=== PATIENT | male | born 1955 | race Caucasian/White ===

== ENCOUNTER 2016-12-18 06:25 | Inpatient (IN) | payer OTHER ==
[~2016-12-18] VITALS: Ht 175.3 cm; Wt 80.0 kg
[~2016-12-18 06:25] MED LIST: COR6 PO; COU5 PO; FLE10 PO; GLU500 PO; NEU300 PO; PAX20 PO; V10 PO; Z PO
[2016-12-18 07:23] LABS: CALCIUM 8.9 mg/dL (8.5-10.1); CARBON DIOXIDE 21.5 mmol/L (21-32); CHLORIDE SERUM 102 mmol/L (98-107); CREATININE SERUM 0.9 mg/dL (0.7-1.3); GFR1 > 60 mL/min; GLUCOSE SERUM 178 mg/dL (74-106); POTASSIUM SERUM 3.9 mmol/L (3.5-5.1); SODIUM SERUM 134 mmol/L (136-145)
[2016-12-18] MEDS ORDERED: ZOCOR40 MG PO (07:23)
[2016-12-18] MEDS ORDERED: COUMADIN6 MG PO (07:25)
[2016-12-18] MEDS ORDERED: ENALAPRIL MALEA10 MG PO (07:26)
[2016-12-18] MEDS ORDERED: NOR10T PO (07:27)
[2016-12-18 07:28] LABS: ALKALINE PHOSPHATASE 94 U/L (46-116); ALT/SGPT 27 U/L (16-63); AST/SGOT 23 U/L (15-37); BASOPHIL % 0.4 % (0-2); BILIRUBIN TOTAL 1.44 mg/dL (0.20-1.00); LIPASE 506 IU/L (73-393); PLATELET COUNT 167 x10^3mcL (130-400); RED CELL DISTRIBUTION WIDTH 13.3 % (11.5-14.5)
[2016-12-18 10:51] VITALS: BP 157/86
[2016-12-18 10:57] VITALS: BP 137/93
[2016-12-18 14:43] VITALS: BP 130/83
[2016-12-18] MEDS ORDERED: LEVAQUIN500 M1 PO (17:44)
[2016-12-18 19:49] VITALS: BP 130/83
[2016-12-18 22:04] VITALS: BP 130/80
[2016-12-19 06:07] VITALS: BP 132/86
[2016-12-19 06:15] LABS: PLATELET COUNT 195 x10^3mcL (130-400); RED CELL DISTRIBUTION WIDTH 13.5 % (11.5-14.5)
[2016-12-19 06:24] LABS: CALCIUM 9.4 mg/dL (8.5-10.1); CARBON DIOXIDE 22.6 mmol/L (21-32); CHLORIDE SERUM 101 mmol/L (98-107); CREATININE SERUM 0.9 mg/dL (0.7-1.3); GFR1 > 60 mL/min; GLUCOSE SERUM 157 mg/dL (74-106); POTASSIUM SERUM 4.1 mmol/L (3.5-5.1); SODIUM SERUM 137 mmol/L (136-145)
[2016-12-19 06:28] LABS: CHOLESTEROL/HDL RATIO 5.8
[2016-12-19 08:43] LABS: BAND NEUTROPHIL 4 % (0-10); BASOPHIL 0 % (0-2); MONOCYTE 7 % (0-7); SEGMENTED NEUTROPHILS 83 % (37-75)
[2016-12-19 08:45] LABS: PLATELET MORPHOLOGY PLATELETS NORMAL; rbc morphology (normal/abnorm) NORMAL (NORMAL)
[2016-12-19 09:31] VITALS: BP 128/79
[2016-12-19 13:43] VITALS: BP 133/82
[2016-12-19 17:20] VITALS: BP 123/83
[2016-12-19 18:50] VITALS: BP 123/83
== END 2016-12-19 19:08 | disposition home or self-care (01) | DRG 144 ==
LOC: ED 06:25 → DU 09:00
PROVIDERS: Emergency Medicine; Internal Medicine Cardiovascular Disease; ADMIT Internal Medicine Pulmonary Disease
DX: J20.9 Acute bronchitis, unspecified (principal); K85.90 Acute pancreatitis without necrosis or infection, unspecified; I11.0 Hypertensive heart disease with heart failure; I50.9 Heart failure, unspecified; E11.9 Type 2 diabetes mellitus without complications; R07.89 Other chest pain; E78.5 Hyperlipidemia, unspecified; Z95.2 Presence of prosthetic heart valve; Z79.01 Long term (current) use of anticoagulants; F17.210 Nicotine dependence, cigarettes, uncomplicated; Z79.84 Long term (current) use of oral hypoglycemic drugs
CPT/HCPCS: 82962; 83880; A9500; J1956; J2930; J7613; J7644

== ENCOUNTER 2017-02-23 16:18 | Emergency (ER) | payer OTHER ==
[~2017-02-23] VITALS: Ht 175.3 cm; Wt 84.4 kg
[~2017-02-23 16:18] MED LIST changes: +COUMADIN6 MG PO; +ENALAPRIL MALEA10 MG PO; +LEVAQUIN500 M1 PO; +NOR10T PO; +ZOCOR40 MG PO
[2017-02-23 17:39] VITALS: BP 152/88
== END 2017-02-23 17:39 | disposition home or self-care (01) ==
LOC: ED 16:18
DX: S71.111A Laceration without foreign body, right thigh, initial encounter (principal); I10 Essential (primary) hypertension; E11.9 Type 2 diabetes mellitus without complications; Z88.0 Allergy status to penicillin; X58.XXXA Exposure to other specified factors, initial encounter; Y93.89 Activity, other specified; Y99.8 Other external cause status; Y92.89 Other specified places as the place of occurrence of the external cause
CPT/HCPCS: 90715

== ENCOUNTER 2017-07-14 14:35 | Inpatient (IN) | payer OTHER ==
[~2017-07-14] VITALS: Ht 175.3 cm; Wt 83.7 kg
[2017-07-14 15:26] LABS: BASOPHIL % 0.9 % (0-2); PLATELET COUNT 165 x10^3mcL (130-400); RED CELL DISTRIBUTION WIDTH 13.5 % (11.5-14.5)
[2017-07-14 15:37] LABS: CALCIUM 8.5 mg/dL (8.5-10.1); CARBON DIOXIDE 25.5 mmol/L (21-32); CHLORIDE SERUM 99 mmol/L (98-107); CREATININE SERUM 0.9 mg/dL (0.7-1.3); GFR1 > 60 mL/min; GLUCOSE SERUM 120 mg/dL (74-106); SODIUM SERUM 133 mmol/L (136-145)
[2017-07-14 15:41] LABS: ALBUMIN 3.6 g/dL (3.4-5.0); ALKALINE PHOSPHATASE 74 U/L (46-116); ALT/SGPT 32 U/L (16-63); AST/SGOT 32 U/L (15-37); PHOSPHOROUS 3.7 mg/dL (2.5-4.9); TOTAL PROTEIN, SERUM 7.8 g/dL (6.4-8.2); URIC ACID 5.4 mg/dL (3.5-7.2)
[2017-07-14 15:42] LABS: CHOLESTEROL 216 mg/dL (<200); HDL CHOLESTEROL 30 mg/dL (40-60)
[2017-07-14 18:38] VITALS: BP 120/76
[2017-07-14 18:41] VITALS: Ht 175.3 cm; Wt 83.7 kg
[2017-07-14 20:23] VITALS: BP 138/77
[2017-07-15 04:48] VITALS: BP 131/75
[2017-07-15 08:31] VITALS: BP 130/76
[2017-07-15 11:31] VITALS: BP 130/76
[2017-07-15 11:58] VITALS: BP 118/72
[2017-07-15 17:46] VITALS: BP 121/69
[2017-07-15 20:40] VITALS: BP 125/72
[2017-07-16 05:37] VITALS: BP 121/80
[2017-07-16 06:12] LABS: PLATELET COUNT 163 x10^3mcL (130-400); RED CELL DISTRIBUTION WIDTH 13.3 % (11.5-14.5)
[2017-07-16 06:33] LABS: ALBUMIN 3.1 g/dL (3.4-5.0); ALKALINE PHOSPHATASE 63 U/L (46-116); ALT/SGPT 44 U/L (16-63); AST/SGOT 26 U/L (15-37); BILIRUBIN DIRECT 0.11 mg/dL (0.0-0.2); BILIRUBIN TOTAL 0.43 mg/dL (0.20-1.00); CALCIUM 8.7 mg/dL (8.5-10.1); CARBON DIOXIDE 24.9 mmol/L (21-32); CHLORIDE SERUM 100 mmol/L (98-107); CREATININE SERUM 0.9 mg/dL (0.7-1.3); GFR1 > 60 mL/min; GLUCOSE SERUM 237 mg/dL (74-106); POTASSIUM SERUM 4.6 mmol/L (3.5-5.1); SODIUM SERUM 133 mmol/L (136-145); TOTAL PROTEIN, SERUM 6.9 g/dL (6.4-8.2)
[2017-07-16 06:48] LABS: BASOPHIL % 0 % (0-2)
[2017-07-16 09:07] VITALS: BP 128/62
[2017-07-16 12:13] VITALS: BP 118/64
[2017-07-16 16:21] VITALS: BP 118/64
== END 2017-07-16 18:38 | disposition home or self-care (01) | DRG 140 ==
LOC: ED 14:35 → DU 17:20
PROVIDERS: Emergency Medicine; ADMIT Internal Medicine Pulmonary Disease
DX: J44.1 Chronic obstructive pulmonary disease with (acute) exacerbation (principal); I10 Essential (primary) hypertension; Z88.0 Allergy status to penicillin; Z95.2 Presence of prosthetic heart valve; Z79.01 Long term (current) use of anticoagulants; Z79.84 Long term (current) use of oral hypoglycemic drugs; E11.9 Type 2 diabetes mellitus without complications; F17.200 Nicotine dependence, unspecified, uncomplicated
CPT/HCPCS: 36600; 82962; 83880; J0456; J2405; J2920; J2930; J3010; J7050; J7512; J7613; J7620; J7644; Q0092

== ENCOUNTER 2018-02-26 04:36 | Emergency (ER) | payer OTHER ==
[~2018-02-26] VITALS: Ht 175.3 cm; Wt 84.8 kg
[2018-02-26 04:45] VITALS: Ht 175.3 cm; Wt 84.8 kg
[2018-02-26 06:11] VITALS: BP 129/74
== END 2018-02-26 06:11 | disposition home or self-care (01) ==
LOC: ED 04:36
PROC: 08C9XZZ Extirpation of Matter from Left Cornea, External Approach (ICD-10-PCS; principal; 2018-02-26)
DX: T15.01XA Foreign body in cornea, right eye, initial encounter (principal); E11.9 Type 2 diabetes mellitus without complications; I10 Essential (primary) hypertension; X58.XXXA Exposure to other specified factors, initial encounter; Y92.9 Unspecified place or not applicable

== ENCOUNTER 2018-03-31 10:44 | Emergency (ER) | payer OTHER ==
[~2018-03-31] VITALS: Ht 175.3 cm; Wt 83.9 kg
[2018-03-31 10:52] VITALS: Ht 175.3 cm; Wt 83.9 kg
[2018-03-31 11:53] VITALS: BP 158/86
== END 2018-03-31 11:53 | disposition home or self-care (01) ==
LOC: ED 10:44
DX: M79.641 Pain in right hand (principal); M79.89 Other specified soft tissue disorders; I10 Essential (primary) hypertension; E11.9 Type 2 diabetes mellitus without complications; Z88.0 Allergy status to penicillin

== ENCOUNTER 2018-04-21 10:58 | Emergency (ER) | payer OTHER ==
[~2018-04-21] VITALS: Ht 172.7 cm; Wt 85.3 kg
[2018-04-21 11:03] VITALS: Ht 172.7 cm; Wt 85.3 kg
[2018-04-21 14:34] VITALS: BP 130/84
== END 2018-04-21 14:34 | disposition home or self-care (01) ==
LOC: ED 10:58
DX: S51.832A Puncture wound without foreign body of left forearm, initial encounter (principal); I10 Essential (primary) hypertension; E11.9 Type 2 diabetes mellitus without complications; F17.210 Nicotine dependence, cigarettes, uncomplicated; W45.0XXA Nail entering through skin, initial encounter; Y93.89 Activity, other specified; Y92.89 Other specified places as the place of occurrence of the external cause; Y99.8 Other external cause status; Z88.0 Allergy status to penicillin
CPT/HCPCS: 90715

== ENCOUNTER 2019-01-22 18:27 | Emergency (ER) | payer OTHER ==
[~2019-01-22] VITALS: Ht 175.3 cm; Wt 85.3 kg
[2019-01-22 18:34] VITALS: Ht 175.3 cm; Wt 85.3 kg
[2019-01-22 19:36] VITALS: BP 135/85
== END 2019-01-22 19:36 | disposition home or self-care (01) ==
LOC: ED 18:27
DX: M79.672 Pain in left foot (principal); M25.572 Pain in left ankle and joints of left foot; B35.3 Tinea pedis; Z88.0 Allergy status to penicillin; Z95.2 Presence of prosthetic heart valve; I10 Essential (primary) hypertension; E11.9 Type 2 diabetes mellitus without complications

== ENCOUNTER 2019-06-29 09:36 | Observation (INO) | payer OTHER ==
[~2019-06-29] VITALS: Ht 175.3 cm; Wt 72.6 kg
[~2019-06-29 09:36] MED LIST changes: -FLE10 PO; -NOR10T PO; -PAX20 PO; -V10 PO
[2019-06-29 09:40] VITALS: Ht 175.3 cm; Wt 72.6 kg
[2019-06-29 11:23] LABS: BASOPHIL % 0.8 % (0-2); PLATELET COUNT 201 x10^3mcL (130-400); RED CELL DISTRIBUTION WIDTH 13.2 % (11.5-14.5)
[2019-06-29 11:42] LABS: CALCIUM 8.4 mg/dL (8.5-10.1); CARBON DIOXIDE 26.8 mmol/L (21-32); CHLORIDE SERUM 105 mmol/L (98-107); CREATININE SERUM 0.8 mg/dL (0.7-1.3); GFR1 > 60 mL/min; GLUCOSE SERUM 160 mg/dL (74-106); POTASSIUM SERUM 4.4 mmol/L (3.5-5.1); SODIUM SERUM 143 mmol/L (136-145)
[2019-06-29 11:55] LABS: ALBUMIN 3.4 g/dL (3.4-5.0); ALKALINE PHOSPHATASE 91 U/L (46-116); ALT/SGPT 33 U/L (16-63); AST/SGOT 22 U/L (15-37); BILIRUBIN TOTAL 0.6 mg/dL (0.20-1.00); CHOLESTEROL 182 mg/dL (<200); LIPASE 683 IU/L (73-393); MAGNESIUM 1.8 mg/dL (1.8-2.4); T4(THYROXINE) 6.8 ug/dL (4.7-13.3); TOTAL PROTEIN, SERUM 7.2 g/dL (6.4-8.2)
[2019-06-29 11:58] LABS: HDL CHOLESTEROL 30 mg/dL (40-60)
[2019-06-29] MEDS ORDERED: PULMICORT180 MCG/Ac INH (12:18)
[2019-06-29] MEDS ORDERED: VENTOLIN H0.09 MG/A1 INH (12:18)
[2019-06-29] MEDS ORDERED: INCRUSE EL62.5 MCG/A IH (12:19)
[2019-06-29 12:56] LABS: microscopic required? NO
[2019-06-29 13:18] LABS: UA SPECIFIC GRAVITY 1.015 (1.005-1.035); urine erythrocyte NEGATIVE (NEGATIVE)
[2019-06-29 13:39] LABS: AMPHETAMINE QUAL UR NONE DETECTED (See below)
[2019-06-29 13:49] VITALS: BP 160/86
[2019-06-29] MEDS ORDERED: NOR10T PO (13:52)
[2019-06-29 16:56] VITALS: BP 149/78
[2019-06-29 21:18] VITALS: BP 153/75
[2019-06-30 04:55] VITALS: BP 151/72
[2019-06-30] MEDS ORDERED: CLONIDINE HCL0.1 MG PO (09:01)
[2019-06-30 09:19] VITALS: BP 179/89
[2019-06-30] MEDS ORDERED: V10 PO (10:14)
[2019-06-30] MEDS ORDERED: PAX20 PO (10:14)
[2019-06-30] MEDS ORDERED: FLE10 PO (10:14)
[2019-06-30] MEDS ORDERED: NOR10T PO (10:14)
[2019-06-30 10:16] VITALS: BP 142/80
== END 2019-06-30 10:25 | disposition home or self-care (01) | DRG 282 ==
LOC: ED 09:36 → MU 12:20
PROVIDERS: Emergency Medicine; ADMIT Internal Medicine Pulmonary Disease
DX: K85.90 Acute pancreatitis without necrosis or infection, unspecified (principal); E11.65 Type 2 diabetes mellitus with hyperglycemia; K76.0 Fatty (change of) liver, not elsewhere classified; K64.8 Other hemorrhoids; I10 Essential (primary) hypertension; J44.9 Chronic obstructive pulmonary disease, unspecified; F17.210 Nicotine dependence, cigarettes, uncomplicated; F12.10 Cannabis abuse, uncomplicated; Z79.01 Long term (current) use of anticoagulants; Z95.2 Presence of prosthetic heart valve; Z91.14 Patient's other noncompliance with medication regimen; Z91.11 Patient's noncompliance with dietary regimen
CPT/HCPCS: 82962; 83880; G0378; G0480; J1815; J3490; J3535; J7030; Q0092

== ENCOUNTER 2019-12-02 12:34 | Emergency (ER) | payer OTHER ==
[~2019-12-02] VITALS: Ht 175.3 cm; Wt 85.3 kg
[~2019-12-02 12:34] MED LIST changes: +CLONIDINE HCL0.1 MG PO; +FLE10 PO; +INCRUSE EL62.5 MCG/A IH; +NOR10T PO; +PAX20 PO; +PULMICORT180 MCG/Ac INH; +V10 PO; +VENTOLIN H0.09 MG/A1 INH
[2019-12-02 12:37] VITALS: Ht 175.3 cm; Wt 85.3 kg
[2019-12-02 13:48] LABS: PLATELET COUNT 208 x10^3mcL (130-400); RED CELL DISTRIBUTION WIDTH 13.1 % (11.5-14.5)
[2019-12-02 13:56] LABS: CALCIUM 8.7 mg/dL (8.5-10.1); CARBON DIOXIDE 27.3 mmol/L (21-32); CHLORIDE SERUM 105 mmol/L (98-107); GFR1 > 60 mL/min; GLUCOSE SERUM 182 mg/dL (74-106); POTASSIUM SERUM 4.4 mmol/L (3.5-5.1); SODIUM SERUM 139 mmol/L (136-145)
[2019-12-02 14:01] LABS: ALBUMIN 3.7 g/dL (3.4-5.0); ALKALINE PHOSPHATASE 84 U/L (46-116); ALT/SGPT 33 U/L (16-63); AST/SGOT 23 U/L (15-37); BILIRUBIN TOTAL 0.6 mg/dL (0.20-1.00); TOTAL PROTEIN, SERUM 7.7 g/dL (6.4-8.2)
[2019-12-02 17:06] VITALS: BP 133/76
== END 2019-12-02 17:06 | disposition home or self-care (01) ==
LOC: ED 12:34
PROVIDERS: Emergency Medicine
DX: J44.1 Chronic obstructive pulmonary disease with (acute) exacerbation (principal); I10 Essential (primary) hypertension; E11.9 Type 2 diabetes mellitus without complications; Z88.0 Allergy status to penicillin
CPT/HCPCS: 36415; 83880; 87804; J7512; J7613; Q0092